=== PATIENT | male | born 1945 | race Caucasian/White ===

== ENCOUNTER → 2018-01-25 | Outpatient (REF) ==
[2018-01-25 17:15] LABS: THYROID STIMULATING HORMONE 1.78 uIU/mL (0.465-4.680)
[2018-01-25 17:37] LABS: PSA-TOTAL 4.18 ng/mL (0-4)
== END ==
LOC: ZLAB.WCH 16:20
PROVIDERS: Internal Medicine
DX: Z01.89 Encounter for other specified special examinations (principal)
CPT/HCPCS: G0103

== ENCOUNTER 2021-07-06 09:00 | Outpatient (RCR) | payer MEDICARE, OTHER | END 2021-07-26 | disposition home or self-care (01) | LOC: MKS.ESL.PT | DX: G60.9 Hereditary and idiopathic neuropathy, unspecified (principal) ==

== ENCOUNTER 2021-07-06 09:30 | Outpatient (RCR) | payer SELFPAY | END 2021-07-26 | disposition home or self-care (01) | LOC: MKS.ESL.PT | DX: G60.9 Hereditary and idiopathic neuropathy, unspecified (principal) ==